=== PATIENT | male | born 1980 | race Caucasian/White ===

== ENCOUNTER 2020-11-13 10:44 | Outpatient (CLI) | payer OTHER ==
--- NOTE | 2020-11-13 11:40 | MRI ---
EXAM: MRI right elbow PROVIDED CLINICAL HISTORY: Pain COMPARISON: None FINDINGS: There is increased signal intensity on fluid sensitive sequences involving the insertional portions o f the long head biceps component of the biceps insertion, without evidence for tendon attenuation or true fluid signal intensity. The brachialis and triceps insertions appear normal. The common extensor and common flexor tendon origins appear intact. The medial and lateral elbow ligaments appear intact. No articular cartilage defect is apparent. The amount of fluid within the elbow joint appears physiologic. No focal concerning regional marrow or muscular signal abnormality is evident. There is a small septated fluid signal intensity structure superficial to the radiocapitellar joint c apsule measuring about 6 mm in maximum transverse dimension. The courses of the regional major neurovascular structures appear unremarkable. IMPRESSION: 1. Mild insertional biceps tendinitis. 2. Small probable ganglion cyst superficial anteriorly to the radiocapitellar joint.
== END 2020-11-13 10:45 | disposition home or self-care (01) ==
LOC: TBSIIMAG 10:44
PROVIDERS: ATTEND Orthopaedic Surgery
DX: M25.521 Pain in right elbow (principal); M77.8 Other enthesopathies, not elsewhere classified

== ENCOUNTER 2021-09-10 11:03 | Outpatient (CLI) | payer BC ==
[2021-09-10 12:30] LABS: #Basophils 0.1 10x3/uL (0.0-0.2); #Monocytes 0.8 10x3/uL (0.0-1.1); #Neutrophils 5.4 10x3/uL (1.5-8.4); %Basophils 0.7 % (0.0-2.0); %Eosinophils 0.5 % (0.0-6.0); %Lymphocytes 18.8 % (18.0-47.0); %Monocytes 9.8 % (0.0-10.0); %Neutrophils 69.9 % (40.0-75.0); Hemoglobin 14.5 g/dL (13.5-17.5); Mean Corpuscular Hemoglobin 29.7 pg (27.0-33.0); Mean Corpuscular Volume 87.5 fl (81.2-95.1); Mean Platelet Volume 9.5 fl (7.4-10.4); Platelet Count 372 10x3/uL (150-450); RBC Distribution Width 13.7 % (11.5-14.5); Red Blood Cell (RBC) Count 4.88 10x6/uL (4.32-5.72); White Blood Cell (WBC) Count 7.7 10x3/uL (3.5-10.5)
[2021-09-10 19:20] LABS: SARS-CoV-2 PCR by NAA Not Detected (NotDetected)
== END 2021-09-10 11:04 | disposition home or self-care (01) ==
LOC: LABBT 11:03
PROVIDERS: ATTEND Orthopaedic Surgery
DX: Z01.818 Encounter for other preprocedural examination (principal); S46.211A Strain of muscle, fascia and tendon of other parts of biceps, right arm, initial encounter; Z20.822 Contact with and (suspected) exposure to COVID-19
CPT/HCPCS: 85025; 93005; 93010; U0003; U0005

== ENCOUNTER 2021-09-15 08:28 | Day surgery (SDC) | payer BC ==
[2021-09-13 15:01] VITALS: BMI 32.7
[2021-09-15] MEDS ORDERED: ceFAZolin Sodium (SDC) 2 GM/100 ML BAG ONE (10:00)
[2021-09-15] MEDS ORDERED: Lidocaine 1% (PF) 30 ML VIAL ONE (10:09)
[2021-09-15] MEDS ORDERED: Fentanyl 100 MCG/2 ML VIAL ONE ×2 (10:45→11:08)
[2021-09-15] MEDS ORDERED: Midazolam HCl 2 mg/2 ml Vial ONE (10:45)
[2021-09-15] MEDS ORDERED: Ondansetron PF 4 MG/2 ML Vial ONE (10:53)
[2021-09-15] MEDS ORDERED: Bupivacaine HCl 0.5%/Epinephrine 1:200,000/PF 30 ml Vial ONE (10:53)
[2021-09-15] MEDS ORDERED: Dexamethasone 20 MG/5 ML VIAL ONE (10:53)
[2021-09-15] MEDS ORDERED: PROPOFOL 200 MG/20 ML VIAL ONE (10:53)
[2021-09-15] MEDS ORDERED: ePHEDrine 50 MG/ML VIAL ONE (10:53)
[2021-09-15] MEDS ORDERED: Ketorolac Tromethamine 30 MG/ML VIAL ONE (10:53)
== END 2021-09-15 13:55 | disposition home or self-care (01) ==
LOC: SDC 08:28
PROVIDERS: ATTEND Orthopaedic Surgery
DX: S46.211A Strain of muscle, fascia and tendon of other parts of biceps, right arm, initial encounter (principal); I10 Essential (primary) hypertension; G47.30 Sleep apnea, unspecified; E66.9 Obesity, unspecified; Z68.32 Body mass index [BMI] 32.0-32.9, adult; Z86.16 Personal history of COVID-19; Z79.899 Other long term (current) drug therapy; X58.XXXA Exposure to other specified factors, initial encounter; W55.29XA Other contact with cow, initial encounter
CPT/HCPCS: 76000; C1713; J0690; J2001; J2250; J3010

== ENCOUNTER 2021-10-01 09:06 | Outpatient (CLI) | payer BC | END 2021-10-01 09:07 | disposition home or self-care (01) | LOC: TBSIIMAG 09:06 | PROVIDERS: ATTEND Orthopaedic Surgery | DX: S46.212A Strain of muscle, fascia and tendon of other parts of biceps, left arm, initial encounter (principal) ==

== ENCOUNTER 2021-10-05 16:52 | Outpatient (CLI) | payer BC ==
[2021-10-05 18:33] LABS: #Basophils 0.1 10x3/uL (0.0-0.2); #Neutrophils 6.8 10x3/uL (1.5-8.4); %Basophils 0.7 % (0.0-2.0); %Eosinophils 0.4 % (0.0-6.0); %Lymphocytes 23.2 % (18.0-47.0); %Neutrophils 65.4 % (40.0-75.0); Hemoglobin 14.6 g/dL (13.5-17.5); Mean Corpuscular Hemoglobin 29.7 pg (27.0-33.0); Platelet Count 412 10x3/uL (150-450); RBC Distribution Width 13.2 % (11.5-14.5); Red Blood Cell (RBC) Count 4.91 10x6/uL (4.32-5.72); White Blood Cell (WBC) Count 10.4 10x3/uL (3.5-10.5)
[2021-10-06 23:25] LABS: SARS-CoV-2 PCR by NAA Not Detected (NotDetected)
== END 2021-10-05 16:53 | disposition home or self-care (01) ==
LOC: LABBT 16:52
PROVIDERS: ATTEND Orthopaedic Surgery
DX: Z01.812 Encounter for preprocedural laboratory examination (principal); Z20.822 Contact with and (suspected) exposure to COVID-19
CPT/HCPCS: 85025; U0003; U0005

== ENCOUNTER 2021-10-07 06:15 | Day surgery (SDC) | payer BC ==
[2021-10-06 10:54] VITALS: BMI 34.4
[2021-10-07] MEDS ORDERED: Lidocaine 1% (PF) 30 ML VIAL ONE ×2 (06:48→07:09)
[2021-10-07] MEDS ORDERED: Lidocaine 1% w/Epinephrine 1:100K 20 ML VIAL ONE ×2 (06:50→09:12)
[2021-10-07] MEDS ORDERED: ceFAZolin 2 GM/DEX 5% 100 ML BAG ONE (06:54)
[2021-10-07] MEDS ORDERED: Midazolam HCl 2 mg/2 ml Vial ONE (07:09)
[2021-10-07] MEDS ORDERED: Fentanyl 100 MCG/2 ML VIAL ONE ×2 (07:09→07:21)
[2021-10-07] MEDS ORDERED: Ondansetron PF 4 MG/2 ML Vial ONE (07:29)
[2021-10-07] MEDS ORDERED: Ketorolac Tromethamine 30 MG/ML VIAL ONE (07:29)
[2021-10-07] MEDS ORDERED: PROPOFOL 200 MG/20 ML VIAL ONE (07:29)
[2021-10-07] MEDS ORDERED: Bupivacaine HCl 0.5%/Epinephrine 1:200,000/PF 30 ml Vial ONE (07:29)
[2021-10-07] MEDS ORDERED: Lidocaine 1% PF 5 ML VIAL ONE (07:29)
[2021-10-07] MEDS ORDERED: ePHEDrine 50 MG/ML VIAL ONE (07:29)
[2021-10-07] MEDS ORDERED: Dexamethasone 20 MG/5 ML VIAL ONE (07:29)
== END 2021-10-07 11:24 | disposition home or self-care (01) ==
LOC: SDC 06:15
PROVIDERS: ATTEND Orthopaedic Surgery
PROC: 3E0T3BZ Introduction of Anesthetic Agent into Peripheral Nerves and Plexi, Percutaneous Approach (ICD-10-PCS; principal; 2021-10-07)
PROC: 0LM20ZZ Reattachment of Left Shoulder Tendon, Open Approach (ICD-10-PCS; principal; 2021-10-07)
DX: S46.212A Strain of muscle, fascia and tendon of other parts of biceps, left arm, initial encounter (principal); I10 Essential (primary) hypertension
CPT/HCPCS: 76000; C1713; J1100; J1885; J2001; J2250; J2405; J2704; J3010; J3490